=== PATIENT | male | born 1980 | race Caucasian/White ===

== ENCOUNTER → 2017-09-22 | Outpatient (CLI) | payer OTHER ==
[~2017-09-22] MED LIST: CONRAY-43 43% 50ML VIAL (Q9960) As Ordered; PROHANCE 279.3MG/ML 5ML VIAL (A9576) As Ordered
== END ==
LOC: M RADPRO 14:02
DX: M25.511 Pain in right shoulder (principal); M75.80 Other shoulder lesions, unspecified shoulder; M19.011 Primary osteoarthritis, right shoulder
CPT/HCPCS: 23350